=== PATIENT | male | born 1975 | race Caucasian/White ===

== ENCOUNTER → 2016-10-30 | Outpatient (CLI) | payer BC ==
[~2016-10-30] MED LIST: ANTIDEPRESSANT; LORTAB 5/500 501 TAB PO; NAPROSYN500 MG PO; NO HOME MEDICATIONS; ULTRAM 50MG TAB50 MG; VICODIN 5/5001 UDTAB PO
== END ==
LOC: COL.RAD 07:29
DX: N20.0 Calculus of kidney (principal); K44.9 Diaphragmatic hernia without obstruction or gangrene
CPT/HCPCS: Q9967

== ENCOUNTER 2016-12-19 09:00 | Outpatient (RCR) | payer BC | END 2016-12-19 12:23 | LOC: WSPT 09:00 | DX: M51.06 Intervertebral disc disorders with myelopathy, lumbar region (principal); M54.5 Low back pain ==

== ENCOUNTER 2018-09-01 19:04 | Emergency (ER) | payer BC ==
[~2018-09-01] VITALS: Ht 180.3 cm; Wt 81.8 kg
[2018-09-01 19:09] VITALS: TEMP 98.2
[2018-09-01] MEDS ORDERED: NORCO 325 MG-51 TAB PO (19:39)
[2018-09-01] MEDS ORDERED: FLEXERIL 1010 MG/TAB PO (21:15)
[2018-09-01] MEDS ORDERED: LIDODERM 5% PATC1 EA TP (22:38)
[2018-09-01 22:45] VITALS: BP 145/75; PULSE 98
== END 2018-09-01 22:46 | disposition home or self-care (01) ==
LOC: COL.ER 19:04
DX: G89.29 Other chronic pain (principal); M54.5 Low back pain; J45.909 Unspecified asthma, uncomplicated; Z88.0 Allergy status to penicillin; Z88.2 Allergy status to sulfonamides
CPT/HCPCS: J1170

== ENCOUNTER → 2018-09-19 | Outpatient (CLI) | payer BC ==
[~2018-09-19] VITALS: Ht 180.3 cm; Wt 83.3 kg
[~2018-09-19] MED LIST changes: +FLEXERIL 1010 MG/TAB PO; +LIDODERM 5% PATC1 EA TP; +NORCO 325 MG-51 TAB PO
[2018-09-19 13:31] VITALS: BP 143/80; PULSE 81
[2018-09-19 14:41] VITALS: BP 142/86; PULSE 71
== END ==
LOC: COL.RAD 13:00
DX: M51.06 Intervertebral disc disorders with myelopathy, lumbar region (principal)
CPT/HCPCS: J3301

== ENCOUNTER → 2018-12-10 07:00 | Outpatient (RCR) | payer BC | END | disposition home or self-care (01) | LOC: WSC 10-28 08:08 → WSPT 10-28 08:15 → WSC 11-19 07:45 → WSPT 11-25 16:15 | DX: M47.816 Spondylosis without myelopathy or radiculopathy, lumbar region (principal) ==

== ENCOUNTER 2020-06-29 11:30 | Outpatient (RCR) | payer OTHER | END 2020-07-04 | disposition home or self-care (01) | LOC: MKS.ESL.PT | DX: M94.262 Chondromalacia, left knee (principal); S83.005A Unspecified dislocation of left patella, initial encounter; S83.412A Sprain of medial collateral ligament of left knee, initial encounter ==

== ENCOUNTER 2020-07-20 15:15 | Outpatient (RCR) | payer OTHER | END 2020-09-27 14:06 | disposition home or self-care (01) | LOC: MKS.ESL.PT 15:15 | DX: M94.262 Chondromalacia, left knee (principal); S83.015A Lateral dislocation of left patella, initial encounter; S83.412A Sprain of medial collateral ligament of left knee, initial encounter ==